=== PATIENT | female | born 1990 | race Caucasian/White ===

== ENCOUNTER 2020-11-13 14:54 | Emergency (ER) | payer OTHER, SELFPAY ==
[2020-11-13 15:01] VITALS: BP 120/67; PULSE 88; RESP 18; TEMP 36.6; O2SAT 100
--- NOTE | 2020-11-13 15:04 | ED.SKABFB ---
HPI - Skin/Abscess/Foreign Bdy General Chief complaint: Skin/Abscess/Foreign Body Stated complaint: Insect Bite Time Seen by Provider: 11/13/20 15:04 Source: patient and RN notes reviewed Mode of arrival: ambulatory Limitations: no limitations History of Present Illness HPI narrative: 30-year-old female presents to the [facility] with complaints of an insect bite to the right posterior upper calf and medial right upper thigh. Patient states that she has a history of MRSA No treatment prior to arrival Related Data Home Medications Medication Instructions Recorded Confirmed aripiprazole 1 mg PO DAILY 11/13/20 11/13/20 bupropion HCl 1 mg PO BID 11/13/20 11/13/20 buspirone 1 mg PO BID 11/13/20 11/13/20 hydroxyzine pamoate 1 mg PO BID 11/13/20 11/13/20 lamotrigine 1 mg PO DAILY 11/13/20 11/13/20 naltrexone 1 mg PO DAILY 11/13/20 11/13/20 topiramate 1 mg PO DAILY 11/13/20 11/13/20 Allergies Allergy/AdvReac Type Severity Reaction Status Date / Time bee venom protein (honey bee) Allergy Intermediate TISSUE Verified 11/13/20 15:09 SWELLING latex Allergy Intermediate ITCHING,VINNY Verified 11/13/20 15:09 H morphine Allergy Intermediate ITCHING Verified 11/13/20 15:09 Review of Systems Review of Systems: All systems reviewed & are unremarkable except as noted in HPI and below Constitutional: Constitutional: Reports no additional constitutional complaints, Denies chills and Denies fever(s) Eyes: Eyes: Reports no additional eye complaints ENT: Reports system reviewed and no additional complaints, except as documented Cardiovascular: Cardiovascular: Reports no additional cardiovascular complaints and Denies chest pain Respiratory: Respiratory: Reports no additional respiratory complaints, Denies cough and Denies dyspnea Gastrointestinal: Gastrointestinal: Reports no additional gastrointestinal complaints Musculoskeletal: Musculoskeletal: Reports no additional musculoskeletal complaints, Denies back pain, Denies arthralgias, Denies joint swelling and Denies muscle cramps Integumentary/Breasts: Skin/Breast: Reports as per HPI and Reports erythema (Area on right thigh and right marcus area) Neurologic: Reports system reviewed and no additional complaints, except as documented Psychiatric: Psychiatric: Reports no additional psychiatric complaints Allergic/Immunologic: Allergic/Immunologic: Reports no additional allergic/immunologic complaints, Denies lip swelling, Denies throat swelling, Denies tongue swelling and Denies wheezing PMFSH Family History Family History (Updated 10/28/18 @ 10:54 by DOCTOR UNKNOWN) Other Family history of attention deficit hyperactivity disorder (ADHD) Hypertension Social History Social History Smoking status: Current every day smoker Alcohol intake: current Gender identity (if verbalized by the patient): Female Comments At the time of my signature, I reviewed and agree with the nursing past medical, surgical, social, and family history. There is no relevant family history pertinent to the patient complaint. Exam Const: General: no acute distress, alert and ill appearing acutely (Mildly) Nutritional Appearance: well nourished Orientation/consciousness: patient oriented x3 Limitations: no limitations HENMT: Head: normal to inspection Ears: external ears normal Eyes: Pupils: Equal, round and reactive pupils present Neck: Neck: normal visual inspection, no lymphadenopathy and no meningeal signs Chest: Chest palpation & inspection: normal inspection of the chest Resp: Effort & Inspection: normal respiratory effort and no use of accessory muscles Auscultation: clear to auscultation bilaterally, no crackles, no rales, no rhonchi and no wheezes Cardio: Rate: regular rate Rhythm: regular rhythm GI: GI Palp: Yes Soft to palpation and No Tenderness to palpation present (GI) : General: Yes no CVA tenderness Back/Spine/Pelvis: Back: no CVA tenderness Skin: Vinny
== END 2020-11-13 15:20 | disposition home or self-care (01) ==
PROVIDERS: Emergency Provider Nurse Practitioner; PCP Family Medicine
DX: L03.115 Cellulitis of right lower limb (principal); F17.200 Nicotine dependence, unspecified, uncomplicated; Z86.14 Personal history of Methicillin resistant Staphylococcus aureus infection; F32.9 Major depressive disorder, single episode, unspecified
CPT/HCPCS: 99213; G0463

== ENCOUNTER 2021-05-17 17:38 | Emergency (ER) | payer OTHER, SELFPAY ==
[2021-05-17 17:54] VITALS: BP 121/64; PULSE 86; RESP 16; TEMP 37.3; O2SAT 98
--- NOTE | 2021-05-17 18:28 | ED.URI ---
HPI - URI/Sore Throat General Chief Complaint: Upper Respiratory Infection Stated Complaint: sore throat Time Seen by Provider: 05/17/21 18:30 Source: patient, RN notes reviewed and old records reviewed Mode of arrival: ambulatory Limitations: no limitations History of Present Illness HPI Narrative: 31-year-old female who presents to [facility] with complaints of sore throat, sinus congestion and drainage, some low grade temps.Patient states that her throat is burning.Patient denies any cough or any shortness of breath with lungs clear with no tachypnea or any respiratory difficulty, SAO2 98% on room air. Patient reports that she has taken some Tylenol for her symptoms, is daily smoker. Related Data Home Medications Medication Instructions Recorded Confirmed aripiprazole 1 mg PO DAILY 11/13/20 11/13/20 bupropion HCl 1 mg PO BID 11/13/20 11/13/20 buspirone 1 mg PO BID 11/13/20 11/13/20 hydroxyzine pamoate 1 mg PO BID 11/13/20 11/13/20 lamotrigine 1 mg PO DAILY 11/13/20 11/13/20 naltrexone 1 mg PO DAILY 11/13/20 11/13/20 topiramate 1 mg PO DAILY 11/13/20 11/13/20 clonidine HCl 05/17/21 lamotrigine 05/17/21 naltrexone mg 05/17/21 Allergies Allergy/AdvReac Type Severity Reaction Status Date / Time bee venom protein (honey bee) Allergy Intermediate TISSUE Verified 11/13/20 15:09 SWELLING latex Allergy Intermediate ITCHING,WADE Verified 11/13/20 15:09 H morphine Allergy Intermediate ITCHING Verified 11/13/20 15:09 Review of Systems Review of Systems: CONSTITUTIONAL: Low grade fever, no chills, or sweats. EYES: Denies visual changes, redness, or discharge. ENT: Positive rhinorrhea, congestion, sore throat, no otalgia. CARDIOVASCULAR: Denies chest pain, palpitations, or edema. RESPIRATORY: Denes cough or dyspnea. GASTROINTESTINAL: Denies abdominal pain, nausea, vomiting, or diarrhea. GENITOURINARY: Denies dysuria or hematuria. SKIN: Denies rash or itching. MUSCULOSKELETAL: Denies back pain, joint pain, or myalgia. NEUROLOGIC: Denies headache, numbness, or weakness. PSYCHIATRIC: Positive for history of anxiety or depression. All systems reviewed & are unremarkable except as noted in HPI and below PMFSH Past Medical History Medical History (Updated 05/19/21 @ 13:26 by Krupa Lucia NP) Anemia Anxiety and depression Bipolar disorder Endometriosis GERD (gastroesophageal reflux disease) Kidney stones Perforated ulcer required surgery Surgical History Surgical History (Updated 05/19/21 @ 13:25 by Krupa Lucia NP) H/O gastric sleeve History of carpal tunnel repair Hx of cholecystectomy Family History Family History Other Family history of attention deficit hyperactivity disorder (ADHD) Hypertension Social History Social History Smoking status: Current every day smoker Alcohol intake: current Gender identity (if verbalized by the patient): Female Comments At time of signature, agree with nursing past medical, surgical, social and family history. There is no relevant family history pertinent to the presenting complaint Exam Narrative: GENERAL: Well-appearing, well-nourished, and in no acute distress. HEAD: Normocephalic, atraumatic. EYES: PERRLA and EOMI. ENT: Nares red with clear rhinorrhea no epistaxis. Mucous membranes moist.TM's normal with good light reflex, throat red with no lesions or exudates, tonsils red and swollen reports throat painful. NECK: Supple.No lymphadenopathy CHEST: Clear to auscultation. No respiratory distress. dry cough SAO2 98% on room air no tachypnea. HEART: Regular rate and rhythm. No murmur heard. Normal peripheral pulses. ABDOMEN: Soft, nontender, nondistended, normal active bowel sounds. EXTREMITIES: Normal range of motion. No edema. SKIN: Warm, dry, no rash. NEURO: No focal deficits. Alert and oriented x3. Course Course Level of C
== END 2021-05-17 19:15 | disposition home or self-care (01) ==
PROVIDERS: Emergency Provider Registered Nurse
DX: J06.9 Acute upper respiratory infection, unspecified (principal); J02.9 Acute pharyngitis, unspecified; N80.9 Endometriosis, unspecified; K21.9 Gastro-esophageal reflux disease without esophagitis; Z98.84 Bariatric surgery status; F17.200 Nicotine dependence, unspecified, uncomplicated; F41.9 Anxiety disorder, unspecified; F31.9 Bipolar disorder, unspecified
CPT/HCPCS: 87081; 87880; 99213; G0463

== ENCOUNTER 2022-02-13 09:05 | Emergency (ER) | payer OTHER, SELFPAY ==
[2022-02-13 09:19] VITALS: BP 116/75; PULSE 63; RESP 18; TEMP 35.9; O2SAT 100
--- NOTE | 2022-02-13 09:22 | ED.FEMALEGU ---
HPI - Female Genitourinary General Chief complaint: Urogenital-Female Stated complaint: left side pain Time Seen by Provider: 02/13/22 09:41 Source: patient and RN notes reviewed Mode of arrival: ambulatory Limitations: no limitations History of Present Illness HPI Narrative: 31-year-old female presents with concern for left flank pain. She reports pain started 2 days ago with a dull pain, increased slightly and has now decreased. She denies dysuria, frequency, urgency, hematuria. She denies fever, bodies, chills, sweats, nausea, vomiting, abdominal pain. She reports the left flank pain does radiate around the side. She denies any injury or trauma. She reports the pain is not positional, however it feels tender when she touches it. She reports history of kidney infection when which she had very similar symptoms. MD elicited complaint: flank pain Related Data Home Medications Medication Instructions Recorded Confirmed aripiprazole 10 mg tablet 1 mg PO DAILY 11/13/20 11/13/20 bupropion HCl 200 mg tablet,12 hr 1 mg PO BID 11/13/20 11/13/20 sustained-release buspirone 7.5 mg tablet 1 mg PO BID 11/13/20 11/13/20 hydroxyzine pamoate 25 mg capsule 1 mg PO BID 11/13/20 11/13/20 lamotrigine 100 mg tablet 1 mg PO DAILY 11/13/20 11/13/20 naltrexone 50 mg tablet 1 mg PO DAILY 11/13/20 11/13/20 topiramate 25 mg tablet 1 mg PO DAILY 11/13/20 11/13/20 clonidine HCl 0.1 mg tablet 05/17/21 lamotrigine 100 mg tablet 05/17/21 naltrexone 50 mg tablet mg 05/17/21 ferrous sulfate 325 mg (65 mg mg 02/13/22 iron) tablet (FeroSul) ziprasidone HCl 60 mg capsule mg PO 02/13/22 02/13/22 Allergies Allergy/AdvReac Type Severity Reaction Status Date / Time bee venom protein (honey bee) Allergy Intermediate TISSUE Verified 02/13/22 09:28 SWELLING latex Allergy Intermediate ITCHING,WADE Verified 02/13/22 09:28 H morphine Allergy Intermediate ITCHING Verified 02/13/22 09:28 Review of Systems Review of Systems: CONSTITUTIONAL: Denies malaise, chills, sweats, or fever. CARDIOVASCULAR: Denies chest pain, palpitations, or edema. RESPIRATORY: Denies cough or dyspnea. GASTROINTESTINAL: Denies abdominal pain, nausea, vomiting, diarrhea GENITOURINARY: Denies dysuria, frequency, urgency, suprapubic pressure, hematuria. Reports left-sided flank pain SKIN: Denies rash or itching. MUSCULOSKELETAL: Denies back pain or myalgia. All systems reviewed & are unremarkable except as noted in HPI and below PMFSH Past Medical History Medical History (Updated 02/13/22 @ 09:49 by Geri Griffith NP) Anemia Anxiety and depression Bipolar disorder Endometriosis GERD (gastroesophageal reflux disease) Kidney stones Perforated ulcer required surgery Surgical History Surgical History (Updated 05/19/21 @ 13:25 by Krupa Lucia NP) H/O gastric sleeve History of carpal tunnel repair Hx of cholecystectomy Family History Family History Other Family history of attention deficit hyperactivity disorder (ADHD) Hypertension Social History Social History Smoking status: Current every day smoker Alcohol intake: current Gender identity (if verbalized by the patient): Female Comments At time of signature, agree with nursing past medical, surgical, social and family history. There is no relevant family history pertinent to the presenting complaint Exam Narrative: GENERAL: Well-appearing, well-nourished, and in no acute distress. HEAD: Normocephalic. EYES: PERRLA, conjunctivae clear. NECK: Supple. No lymphadenopathy CHEST: Clear to auscultation. No respiratory distress. HEART: Regular rate and rhythm. ABDOMEN: Soft, nontender upon palpation, nondistended, normal active bowel sounds, no palpable or pulsatile masses, no guarding. No CVA tenderness SKIN: Warm, dry, no rash. NEURO: Alert and oriented x3. PSYCH: Normal m
== END 2022-02-13 09:53 | disposition home or self-care (01) ==
PROVIDERS: Emergency Provider Nurse Practitioner
DX: R10.9 Unspecified abdominal pain (principal); F17.200 Nicotine dependence, unspecified, uncomplicated; N80.9 Endometriosis, unspecified; K21.9 Gastro-esophageal reflux disease without esophagitis; F41.9 Anxiety disorder, unspecified; F31.9 Bipolar disorder, unspecified; Z98.84 Bariatric surgery status
CPT/HCPCS: 81003; 87086; 99213; G0463

== ENCOUNTER 2022-02-19 15:14 | Emergency (ER) | payer OTHER, SELFPAY ==
[2022-02-19 15:27] VITALS: BP 103/63; PULSE 82; RESP 20; TEMP 37; O2SAT 100
--- NOTE | 2022-02-19 16:24 | ED.FEMALEGU ---
HPI - Female Genitourinary General Chief complaint: Urogenital-Female Stated complaint: dysuria Time Seen by Provider: 02/19/22 16:24 Source: patient, family, RN notes reviewed and old records reviewed Mode of arrival: ambulatory Limitations: no limitations History of Present Illness HPI Narrative: 31-year-old female who presents to express care with complaints of burning with urination continues. She reports that her back pain is gone but continues to have front lower abdominal discomfort and the burning with her urination. Patient reports that she has 3 doses of Augmentin left that was previously ordered. patient reports that she usually needs Bactrim to get rid of her UTI's. Patient is afebrile, denies any vagianl discharge or itching, denies any McBurney point tenderness on examination or any CVA tenderness. MD elicited complaint: UTI Onset (ago): day(s) (7) Location of symptoms: suprapubic Severity scale (1-10): 6 Quality of pain: dull Related Data Home Medications Medication Instructions Recorded Confirmed aripiprazole 10 mg tablet 1 mg PO DAILY 11/13/20 02/19/22 bupropion HCl 200 mg tablet,12 hr 1 mg PO BID 11/13/20 02/19/22 sustained-release buspirone 7.5 mg tablet 1 mg PO BID 11/13/20 02/19/22 hydroxyzine pamoate 25 mg capsule 25 mg PO BID 11/13/20 02/19/22 clonidine HCl 0.1 mg tablet 0.1 mg PO DAILY 05/17/21 02/19/22 naltrexone 50 mg tablet 50 mg PO DAILY 05/17/21 02/19/22 ferrous sulfate 325 mg (65 mg 325 mg PO DAILY 02/13/22 02/19/22 iron) tablet (FeroSul) topiramate 100 mg tablet 100 mg PO DIRECTED 02/19/22 02/19/22 Allergies Allergy/AdvReac Type Severity Reaction Status Date / Time bee venom protein (honey bee) Allergy Intermediate TISSUE Verified 02/19/22 15:17 SWELLING latex Allergy Intermediate ITCHING,WADE Verified 02/19/22 15:17 H morphine Allergy Intermediate ITCHING Verified 02/19/22 15:17 Review of Systems Review of Systems: CONSTITUTIONAL: Denies fever, chills, or sweats. CARDIOVASCULAR: Denies chest pain, palpitations, or edema. RESPIRATORY: Denies cough or dyspnea. GASTROINTESTINAL: suprapubic abdominal pain,no nausea, vomiting, or diarrhea. GENITOURINARY: Reports dysuria, frequency, urgency. Denies flank pain or hematuria. SKIN: Denies rash or itching. MUSCULOSKELETAL: Denies back pain or myalgia. Denies CVA tenderness NEUROLOGIC: Denies headache All systems reviewed & are unremarkable except as noted in HPI and below PMFSH Past Medical History Medical History Anemia Anxiety and depression Bipolar disorder Endometriosis GERD (gastroesophageal reflux disease) Kidney stones Perforated ulcer required surgery Surgical History Surgical History H/O gastric sleeve History of carpal tunnel repair Hx of cholecystectomy Family History Family History Other Family history of attention deficit hyperactivity disorder (ADHD) Hypertension Social History Social History Smoking status: Current every day smoker Alcohol intake: current Gender identity (if verbalized by the patient): Female Comments At time of signature, agree with nursing past medical, surgical, social and family history. There is no relevant family history pertinent to the presenting complaint Exam Narrative: GENERAL: Well-appearing, well-nourished, and in no acute distress. HEAD: Normocephalic, atraumatic. NECK: Supple.no lymphadenopathy CHEST: Clear to auscultation. No respiratory distress.SAO2 100% on room air HEART: Regular rate and rhythm. No murmur heard. Normal peripheral pulses. ABDOMEN: Soft, suprapubic tender, nondistended, normal active bowel sounds. No CVA tenderness EXTREMITIES: Normal range of motion. No edema. SKIN: Warm, dry, no rash. NEURO: No focal deficit
== END 2022-02-19 16:49 | disposition home or self-care (01) ==
PROVIDERS: Emergency Provider Registered Nurse; PCP Physician Assistant
DX: R30.0 Dysuria (principal); R10.30 Lower abdominal pain, unspecified; D64.9 Anemia, unspecified; F41.9 Anxiety disorder, unspecified; F32.A Depression, unspecified; N80.9 Endometriosis, unspecified; K21.9 Gastro-esophageal reflux disease without esophagitis; Z98.84 Bariatric surgery status; F17.200 Nicotine dependence, unspecified, uncomplicated
CPT/HCPCS: 81003; 87086; 99213; G0463

== ENCOUNTER 2024-07-28 15:34 | Emergency (ER) | payer OTHER, SELFPAY ==
--- NOTE | ~2024-07-28 | US_ITS ---
EXAMINATION: US OB <= 14 weeks fetus DATE: 07/28/2024 19:09 CDT INDICATION: Remote history of spotting and cramping COMPARISON: 02/11/2024 TECHNIQUE: Real-time transabdominal obstetric ultrasound. FINDINGS: 2 para 1 Estimated date of delivery by last menstrual period is 03/17/2025 The uterus measures 9.4 x 6.3 x 7.7 cm. A gestational sac is identified within the uterus. A pole is identified, with a crown-rump length that measures 1.3 cm, corresponding to an approx imate gestational age of 7 weeks and 4 days. cardiac activity is identified at a rate of 151 bpm. The right ovary measures 3.6 x 2.5 x 2.7 cm. The left ovary measures 2.6 x 1.9 x 2.0cm. Estimated date of delivery by ultrasound is 03/12/2025 IMPRESSION: Single intrauterine gestation with an approximate gestational age of 7 weeks and 4 days, with c ardiac activity identified. Reviewed, dictated and finalized at location A. IMPRESSION: Single intrauterine gestation with an approximate gestational age of 7 weeks an d 4 days, with cardiac activity identified.
[2024-07-28 15:45] VITALS: BP 148/63; PULSE 98; RESP 16; TEMP 36.6; O2SAT 100
--- NOTE | 2024-07-28 18:21 | ED_ITS ---
HPI - General Chief complaint: Vaginal Bleeding <Michelle Mae PA-C - Last Filed: 07/28/24 19:12> Stated complaint: spotting, ? <Michelle Mae PA-C - Last Filed: 07/28/24 19:12> Time Seen by Provider: 07/28/24 18:22 <Michelle Mae PA-C - Last Filed: 07/28/24 19:12> Focused HPI: patient is a 34-year-old female who presents the ED with report of vaginal spotting. Patient reports she is currently around 6 weeks gestation. Her last normal menstrual cycle was late May, early June. . She states she was supposed to have her first OBGYN appointment for confirmation today with Manny Edmond PA-C but states the appointment was cancelled. She was then told to come here for further evaluation as she has been having intermittent vaginal spotting over the past 3 weeks. States at times it is brown discharge, sometimes very light pink. Reports intermittent lower abd cramping. Denies urinary complaints, fevers. GENERAL: Well-appearing, well-nourished, and in no acute distress. HEAD: Normocephalic, atraumatic. CHEST: Clear to auscultation. ?No respiratory distress. HEART: Regular rate and rhythm.? NEURO: ?Alert and oriented x3. Patient screened in triage and initial orders placed.? ?Additional care and disposition to be based upon?diagnostic testing and treatment. <Michelle Mae PA-C - Last Filed: 07/28/24 19:12> Source: patient <Michelle Mae PA-C - Last Filed: 07/28/24 19:12> Mode of arrival: ambulatory <Michelle Mae PA-C - Last Filed: 07/28/24 19:12> Limitations: no limitations <JENNIFER Haney Last Filed: 07/28/24 19:12> History of Present Illness HPI Narrative: Patient 34-year-old female presents emergency department with chief complaint of vaginal spotting. The patient reports approximately 6 weeks reports he was supposed to see her OBGYN today but they canceled patient reports that she had some spotting reports she has not had a confirmation ultrasound so far <El Saunders MD - Last Filed: 07/29/24 00:20> Related Data Home medications: Home Medications ?Medication ?Instructions ?Recorded ?Confirmed ?Last Taken ?Type aripiprazole 10 mg tablet 1 mg PO DAILY 11/13/20 02/19/22 Unknown History bupropion HCl 200 mg tablet,12 hr 1 mg PO BID 11/13/20 02/19/22 Unknown History sustained-release buspirone 7.5 mg tablet 1 mg PO BID 11/13/20 02/19/22 Unknown History hydroxyzine pamoate 25 mg capsule 25 mg PO BID 11/13/20 02/19/22 Unknown History clonidine HCl 0.1 mg tablet 0.1 mg PO DAILY 05/17/21 02/19/22 Unknown History naltrexone 50 mg tablet 50 mg PO DAILY 05/17/21 02/19/22 Unknown History ferrous sulfate 325 mg (65 mg 325 mg PO DAILY 02/13/22 02/19/22 Unknown History iron) tablet (FeroSul) topiramate 100 mg tablet 100 mg PO DIRECTED 02/19/22 02/19/22 Unknown History <Michelle Mae PA-C - Last Filed: 07/28/24 19:12> Allergies/Adverse reactions: Allergies Allergy/AdvReac Type Severity Reaction Status Date / Time bee venom protein (honey bee) Allergy Intermediate TISSUE Verified 07/28/24 23:25 SWELLING latex Allergy Intermediate ITCHING,WADE Verified 07/28/24 23:25 H morphine Allergy Intermediate ITCHING Verified 07/28/24 23:25 <Michelle Mae PA-C - Last Filed: 07/28/24 19:12> Review of Systems 2 Review of Systems: A 10 system review of systems was completed on the patient and is negative except for what is stated in the HPI. Nursing and ancillary documentation was reviewed. <El Saunders MD - Last Filed: 07/29/24 00:20> PMFSH Past Medical History Medical History: Medical History Perforated ulcer required surgery Anxiety and depression Bipolar disorder Anemia Kidney stones Endometriosis GERD (gastroesophageal reflux disease) <Michelle Mae PA-C - Last Filed: 07/28/24 19:12> Surgical History Surgical History: Surgical History Hx of cholecystectomy History of carpal tunnel repair H/O gastric sleeve <Michelle Mae PA-C - Last Filed: 07/28/24 19:12> Family History Family History: Family History Other Family history of attention deficit hyperactivity disorder (ADHD) Hypertension <JENNIFER Haney Last Filed: 07/28/24 19:12> Social History Social History: Social History Smoking status: Current every day smoker Alcohol intake: current Gender identity (if verbalized by the patient): Female <Michelle Mae PA-C - Last Filed: 07/28/24 19:12> Exam 2 Narrative: GENERAL: Well-appearing, well-nourished, and in no acute distress. HEAD: Normocephalic, atraumatic. EYES: PERRLA and EOMI. ENT: Nares clear, no rhinorrhea or epistaxis. Mucous membranes moist. NECK: Supple. CHEST: Clear to auscultation. No respiratory distress. HEART: Regular rate and rhythm. No murmur heard. Normal peripheral pulses. ABDOMEN: Soft, nontender, nondistended, normal active bowel sounds. EXTREMITIES: Normal range of motion. No edema. SKIN: Warm, dry, no rash. NEURO: No focal deficits. Alert and oriented x3. PSYCH: Normal mood and affect. <El Saunders MD - Last Filed: 07/29/24 00:20> Course Vital Signs Vital signs: Vital Signs Temperature 36.6 C 07/28/24 15:45 Pulse Rate 98 07/28/24 15:45 Respiratory Rate 16 07/28/24 15:45 Blood Pressure 148/63 H 07/28/24 15:45 Pulse Oximetry 100 07/28/24 15:45 Temperature 36.9 C 07/28/24 23:26 Pulse Rate 75 07/28/24 23:26 Respiratory Rate 16 07/28/24 23:26 Blood Pressure 130/62 07/28/24 23:26 Pulse Oximetry 98 07/28/24 23:26 <Michelle Mae PA-C - Last Filed: 07/28/24 19:12> Vital Signs Temperature 36.6 C 07/28/24 15:45 Pulse Rate 98 07/28/24 15:45 Respiratory Rate 16 07/28/24 15:45 Blood Pressure 148/63 H 07/28/24 15:45 Pulse Oximetry 100 07/28/24 15:45 Temperature 36.9 C 07/28/24 23:26 Pulse Rate 75 07/28/24 23:26 Respiratory Rate 16 07/28/24 23:26 Blood Pressure 130/62 07/28/24 23:26 Pulse Oximetry 98 07/28/24 23:26 <El Saunders MD - Last Filed: 07/29/24 00:20> MDM - OB/Uterine Contractions MDM Narrative Medical decision making narrative: MSE by RAMSEY in triage. <Michelle Mae PA-C - Last Filed: 07/28/24 19:12> MSE by RAMSEY in triage. Differential diagnosis includes threatened miscarriage, incomplete miscarriage, ectopic Laboratory studies were obtained showed white count 10.2 hemoglobin was 12.9 electrolytes are within normal limits [place] [address] Patient is B+ for blood type Pelvic ultrasound showed Single intrauterine gestation with an approximate gestational age of 7 weeks and 4 days, with cardiac activity identified <El Saunders MD - Last Filed: 07/29/24 00:20> Lab Data Result diagrams: 07/28/24 22:15 07/28/24 22:15 <Michelle Mae PA-C - Last Filed: 07/28/24 19:12> Labs: Lab Results 07/28/24 07/28/24 Range/Units 22:15 23:23 WBC 10.2 H (4.5-10.0) K/mm3 RBC 4.08 L (4.2-5.4) M/mm3 Hgb 12.9 (12.0-15.0) g/dL Hct 37.9 (37.0-47.0) % MCV 92.9 (80-100) fl MCH 31.6 (26-34) pg MCHC 34.0 (32-36) g/dl RDW 13.6 (11.5-14.5) % Plt Count 181 (150-375) k/mm3 MPV 11.4 H (7.4-10.4) fl Immature Gran % (Auto) 0.3 (0-0.5) % Neut % (Auto) 71.6 (45.5-73.1) % Lymph % (Auto) 20.5 (18.3-44.2) % [place] % (Auto) 6.5 (2.6-8.5) % Eos % (Auto) 0.8 (0-4.4) % Baso % (Auto) 0.3 (0.2-1.2) % Lymph # (Auto) 2.08 (0.9-3.2) K/mm3 [place] # (Auto) 0.7 H (0.1-0.6) K/mm3 Eos # (Auto) 0.1 (0-0.3) K/mm3 Baso # (Auto) 0.0 (0.0-0.1) K/mm3 Abs Immat Gran (auto) 0.03 (0.00-0.031) K/mm3 Absolute Neuts (auto) 7.3 H (1.3-6.7) K/mm3 Absolute Nucleated RBC 0.000 (0.0-0.012) K/mm3 Nucleated RBC % 0.0 (0.0-0.2) % PT 13.8 (11.1-14.7) Seconds INR 1.0 APTT 26.6 (22.3-36.8) Seconds Sodium 137 (137-145) mmol/L Potassium 4.1 (3.4-5.0) mmol/L Chloride 105 (98-107) mmol/L Carbon Dioxide 24 (22-30) mmol/L Anion Gap 8 (4-12) mmol/L BUN 11 (7-17) mg/dL Creatinine 0.68 L (0.7-1.0) mg/dL Estim Creat Clear Calc 88 ml/min Estimated GFR > 60 (59 - ) Glucose 90 (65-110) mg/dL Calcium 9.1 (8.4-10.2) mg/dL Total Bilirubin 0.3 (0.2-1.3) mg/dL AST 25 (14-36) U/L ALT 31 (6-35) U/L Alkaline Phosphatase 81 (38-126) U/L Total Protein 7.0 (6.3-8.2) g/dL Albumin 4.0 (3.5-5.1) g/dL Beta HCG, Quant 12466.00 mIU/ML Urine Color Yellow (Yellow) Urine Appearance Clear (Clear) Urine pH 7.0 (5.0-9.0) Ur Specific [place] 1.012 (1.001-1.035) Urine Protein Negative (Negative) mg/dL Urine Glucose (UA) Negative (Negative) mg/dL Urine Ketones Negative (Negative) mg/dL Ur Blood (Man) Negative (Negative) Urine Nitrate Negative (Negative) Urine Bilirubin Negative (Negative) Urine Urobilinogen 0.2 (<2.0) mg/dL Leukocyte Esterase Rfl Negative (Negative) RIA/UL Blood Type B Positive Antibody Screen Negative Screen TNP Baby's Blood Type Not Reportable Baby's HODAN Not Reportable Doses of RhIg Required 0 <Michelle Mae PA-C - Last Filed: 07/28/24 19:12> Lab Results 07/28/24 07/28/24 Range/Units 22:15 23:23 WBC 10.2 H (4.5-10.0) K/mm3 RBC 4.08 L (4.2-5.4) M/mm3 Hgb 12.9 (12.0-15.0) g/dL Hct 37.9 (37.0-47.0) % MCV 92.9 (80-100) fl MCH 31.6 (26-34) pg MCHC 34.0 (32-36) g/dl RDW 13.6 (11.5-14.5) % Plt Count 181 (150-375) k/mm3 MPV 11.4 H (7.4-10.4) fl Immature Gran % (Auto) 0.3 (0-0.5) % Neut % (Auto) 71.6 (45.5-73.1) % Lymph % (Auto) 20.5 (18.3-44.2) % [place] % (Auto) 6.5 (2.6-8.5) % Eos % (Auto) 0.8 (0-4.4) % Baso % (Auto) 0.3 (0.2-1.2) % Lymph # (Auto) 2.08 (0.9-3.2) K/mm3 [place] # (Auto) 0.7 H (0.1-0.6) K/mm3 Eos # (Auto) 0.1 (0-0.3) K/mm3 Baso # (Auto) 0.0 (0.0-0.1) K/mm3 Abs Immat Gran (auto) 0.03 (0.00-0.031) K/mm3 Absolute Neuts (auto) 7.3 H (1.3-6.7) K/mm3 Absolute Nucleated RBC 0.000 (0.0-0.012) K/mm3 Nucleated RBC % 0.0 (0.0-0.2) % PT 13.8 (11.1-14.7) Seconds INR 1.0 APTT 26.6 (22.3-36.8) Seconds Sodium 137 (137-145) mmol/L Potassium 4.1 (3.4-5.0) mmol/L Chloride 105 (98-107) mmol/L Carbon Dioxide 24 (22-30) mmol/L Anion Gap 8 (4-12) mmol/L BUN 11 (7-17) mg/dL Creatinine 0.68 L (0.7-1.0) mg/dL Estim Creat Clear Calc 88 ml/min Estimated GFR > 60 (59 - ) Glucose 90 (65-110) mg/dL Calcium 9.1 (8.4-10.2) mg/dL Total Bilirubin 0.3 (0.2-1.3) mg/dL AST 25 (14-36) U/L ALT 31 (6-35) U/L Alkaline Phosphatase 81 (38-126) U/L Total Protein 7.0 (6.3-8.2) g/dL Albumin 4.0 (3.5-5.1) g/dL Beta HCG, Quant 68401.00 mIU/ML Urine Color Yellow (Yellow) Urine Appearance Clear (Clear) Urine pH 7.0 (5.0-9.0) Ur Specific [place] 1.012 (1.001-1.035) Urine Protein Negative (Negative) mg/dL Urine Glucose (UA) Negative (Negative) mg/dL Urine Ketones Negative (Negative) mg/dL Ur Blood (Man) Negative (Negative) Urine Nitrate Negative (Negative) Urine Bilirubin Negative (Negative) Urine Urobilinogen 0.2 (<2.0) mg/dL Leukocyte Esterase Rfl Negative (Negative) RIA/UL Blood Type B Positive Antibody Screen Negative Screen TNP Baby's Blood Type Not Reportable Baby's HODAN Not Reportable Doses of RhIg Required 0 <El Saunders MD - Last Filed: 07/29/24 00:20> Discharge Plan Discharge Clinical Impression: Threatened <Michelle Mae PA-C - Last Filed: 07/28/24 19:12> Patient Disposition: Home, Self-Care <Michelle Mae PA-C - Last Filed: 07/28/24 19:12> Condition: Stable <Michelle Mae PA-C - Last Filed: 07/28/24 19:12> Instructions: Antibiotic Form, Threatened Miscarriage (ED) <JENNIFER Haney Last Filed: 07/28/24 19:12> Additional Instructions: Please follow-up with your OBGYN <Michelle Mae PA-C - Last Filed: 07/28/24 19:12> Patient Language: Mongolian <Michelle Mae PA-C - Last Filed: 07/28/24 19:12> Prescriptions: No Action clonidine HCl 0.1 mg tablet 0.1 mg PO DAILY naltrexone 50 mg tablet 50 mg PO DAILY buspirone 7.5 mg tablet 1 mg PO BID hydroxyzine pamoate 25 mg capsule 25 mg PO BID bupropion HCl 200 mg tablet sustained-release 12 hr 1 mg PO BID aripiprazole 10 mg tablet 1 mg PO DAILY ferrous sulfate [FeroSul] 325 mg (65 mg iron) tablet 325 mg PO DAILY amoxicillin-pot clavulanate 875-125 mg tablet 1 tablet PO Q12H 7 Days Qty: 14 0RF topiramate 100 mg tablet 100 mg PO DIRECTED sulfamethoxazole-trimethoprim [Bactrim DS] 800-160 mg tablet 1 tablet PO Q12H Qty: 6 0RF phenazopyridine [Pyridium] 200 mg tablet 200 mg PO TID PRN (Reason: pain) Qty: 6 0RF <Michelle Mae PA-C - Last Filed: 07/28/24 19:12> Follow-up/Referrals: Sharad,BERTIN Burt [Primary Care Provider] - <Michelle Mae PA-C - Last Filed: 07/28/24 19:12> Time of Disposition: 00:18 <Michelle Mae PA-C - Last Filed: 07/28/24 19:12> 00:18 <El Saunders MD - Last Filed: 07/29/24 00:20>
[2024-07-28 18:50] VITALS: BP 134/68; PULSE 76; RESP 18; TEMP 36.7; O2SAT 98
[2024-07-28 22:21] LABS: Basophils Percent Auto 0.3 % (0.2-1.2); Eosinophils Absolute Auto 0.1 K/mm3 (0-0.3); Eosinophils Percent Auto 0.8 % (0-4.4); Hematocrit 37.9 % (37.0-47.0); Hemoglobin 12.9 g/dL (12.0-15.0); Immature Granulocyte Absolute 0.03 K/mm3 (0.00-0.031); Immature Granulocyte Percent A 0.3 % (0-0.5); Lymphocytes Absolute Auto 2.08 K/mm3 (0.9-3.2); Lymphocytes Percent Auto 20.5 % (18.3-44.2); Mean Corpuscular Hemoglobin 31.6 pg (26-34); Mean Corpuscular Volume 92.9 fl (80-100); Mean Platelet Volume 11.4 fl (7.4-10.4); Monocytes Absolute Auto 0.7 K/mm3 (0.1-0.6); Monocytes Percent Auto 6.5 % (2.6-8.5); Neutrophils Absolute Auto 7.3 K/mm3 (1.3-6.7); Neutrophils Percent Auto 71.6 % (45.5-73.1); Platelet Count Result 181 k/mm3 (150-375); Red Blood Count 4.08 M/mm3 (4.2-5.4); Red Cell Distribution Width 13.6 % (11.5-14.5); White Blood Count 10.2 K/mm3 (4.5-10.0)
[2024-07-28 22:40] LABS: Alanine Aminotransferase 31 U/L (6-35); Alkaline Phosphatase 81 U/L (38-126); Anion Gap 8 mmol/L (4-12); Aspartate Amino Transferase 25 U/L (14-36); Bilirubin,Total 0.3 mg/dL (0.2-1.3); Blood Urea Nitrogen 11 mg/dL (7-17); Calcium 9.1 mg/dL (8.4-10.2); Carbon Dioxide 24 mmol/L (22-30); Chloride 105 mmol/L (98-107); Estimated CRCL calculation 88 ml/min; Estimated Glomerular Filt Rate > 60; Glucose 90 mg/dL (65-110); Potassium 4.1 mmol/L (3.4-5.0); Sodium 137 mmol/L (137-145)
[2024-07-28 22:47] LABS: Partial Thromboplastin Time 26.6 Seconds (22.3-36.8); Prothrombin Time 13.8 Seconds (11.1-14.7)
[2024-07-28 23:26] VITALS: BP 130/62; PULSE 75; RESP 16; TEMP 36.9; O2SAT 98
[2024-07-28 23:29] LABS: Add Urine Microscopic? NO; Appearance Urine Clear (Clear); Bilirubin Urine Negative (Negative); Blood Urine Negative (Negative); Color Urine Yellow (Yellow); Glucose Urine UA Negative (Negative); Ketones Urine Negative (Negative); Leukocyte Esterase Ur Negative LEU/UL (Negative); Nitrate Urine Negative (Negative); Protein Urine Negative (Negative); Specific Grav Ur 1.012 (1.001-1.035); Urobilinogen Urine 0.2 mg/dL (<2.0)
== END 2024-07-29 00:26 | disposition home or self-care (01) ==
PROVIDERS: Physician Assistant; Emergency Provider Emergency Medicine; PCP Physician Assistant
DX: O20.0 Threatened abortion (principal); Z3A.01 Less than 8 weeks gestation of pregnancy
CPT/HCPCS: 36415; 76801; 80053; 81003; 84702; 85025; 85461; 85610; 85730; 86850; 86900; 86901; 99284

== ENCOUNTER 2024-08-04 15:08 | Emergency (ER) | payer OTHER, SELFPAY ==
--- NOTE | ~2024-08-04 | US_ITS ---
FIRST TRIMESTER ULTRASOUND 08/04/2024 20:00 CDT Ordering provider: Perla Palomares PA-C History: . vaginal bleeding in . Comparison: None. FINDINGS: INTRAUTERINE GESTATIONAL SAC: Present. YOLK SAC: Present. Measures 0.4 cm. POLE: Present. Measures 2.04 cm equivalent to 8 weeks and 4 days. JORGE ALBERTO is March 12, 2025 heart rate is 168 bpm. Subchorionic hematoma is seen. GESTATIONAL AGE BY LMP: GESTATIONAL AGE BY TODAY'S US: UTERUS: The uterus measures 13.2x 6.8x 7.4 cm. in length which is within normal limits. No myometrial masses. FREE FLUID: None. OVARIES: Normal in size with the right measuring 4.4x 3.3x 3 cm. and the left measuring 3.1x 2.3x 2.6 cm. Doppler flow is demonstrated within both ovaries. ADNEXAL MASSES: None. IMPRESSION: Intrauterine of 8 weeks and 4 days with subchorionic hematoma. JORGE ALBERTO is March 12, 2025 Reviewed, dictated and finalized at location A.
[2024-08-04 15:45] VITALS: BP 120/65; PULSE 87; RESP 16; TEMP 36.9; O2SAT 100
--- NOTE | 2024-08-04 18:30 | ED.FEMALEGU ---
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 Patient states she has intermittent brown vaginal spotting for the past 4 weeks. She had an appointment last week at her OB office with Manny Edmond PA-C but unfortunately appointments canceled. While speaking with the staff, she told the staff about her symptoms and was redirected to the emergency department. She was seen in our ED on 07/28/2024 he and had a ultrasound which confirmed a single intrauterine gestation with approximate gestational age of 7 weeks and 4 days with cardiac activity identified. Patient has not followed up with her OBGYN and has not had repeat beta hCG. She presents today because at 1:00 p.m. she began having a significant increase in her vaginal bleeding. States she has passed several palm sized clots and has saturated 1 pad per hour. She is endorsing some lightheadedness and lower abdominal cramping. She denies dysuria, fever, injury or trauma. LMP last week of May. She is requesting to be swabbed for BV. States she has had intermittent foul-smelling discharge. She denies concern for STDs however is requesting swabs for these. Patient is currently on a vitamin containing folic acid. Related Data Home Medications ?Medication ?Instructions ?Recorded ?Confirmed ?Last Taken ?Type aripiprazole 10 mg tablet 1 mg PO DAILY 11/13/20 02/19/22 Unknown History bupropion HCl 200 mg tablet,12 hr 1 mg PO BID 11/13/20 02/19/22 Unknown History sustained-release buspirone 7.5 mg tablet 1 mg PO BID 11/13/20 02/19/22 Unknown History hydroxyzine pamoate 25 mg capsule 25 mg PO BID 11/13/20 02/19/22 Unknown History clonidine HCl 0.1 mg tablet 0.1 mg PO DAILY 05/17/21 02/19/22 Unknown History naltrexone 50 mg tablet 50 mg PO DAILY 05/17/21 02/19/22 Unknown History ferrous sulfate 325 mg (65 mg 325 mg PO DAILY 02/13/22 02/19/22 Unknown History iron) tablet (FeroSul) topiramate 100 mg tablet 100 mg PO DIRECTED 02/19/22 02/19/22 Unknown History Allergies Allergy/AdvReac Type Severity Reaction Status Date / Time bee venom protein (honey bee) Allergy Intermediate TISSUE Verified 08/04/24 15:09 SWELLING latex Allergy Intermediate ITCHING,WADE Verified 08/04/24 15:09 H morphine Allergy Intermediate ITCHING Verified 08/04/24 15:09 Review of Systems Review of Systems: All systems reviewed & are unremarkable except as noted in HPI and below PMFSH Past Medical History Medical History Perforated ulcer required surgery Anxiety and depression Bipolar disorder Anemia Kidney stones Endometriosis GERD (gastroesophageal reflux disease) Surgical History Surgical History Hx of cholecystectomy History of carpal tunnel repair H/O gastric sleeve Family History Family History Other Family history of attention deficit hyperactivity disorder (ADHD) Hypertension Social History Social History Smoking status: Current every day smoker Alcohol intake: current Gender identity (if verbalized by the patient): Female Exam Narrative: GENERAL: Well-appearing, well-nourished, and in no acute distress. HEAD: Normocephalic, atraumatic. EYES: EOMI. ENT: Nares clear, no rhinorrhea or epistaxis. Mucous membranes moist. NECK: Supple. CHEST: Clear to auscultation. No respiratory distress. HEART: Regular rate and rhythm. No murmur heard. Normal peripheral pulses. ABDOMEN: Soft, nontender, nondistended, normal active bowel sounds. No rebound, guarding or rigidity. No CVA tenderness : Chaperoned by DILIA Marcial: Normal external genitalia, mild amount of bright red blood in the vaginal vault with small dime-sized clot which was easily removed, cervical os is closed with no tissue or clots in the office, no CMT, vaginal discharge, adnexal masses or tenderness EXTREMITIES: Normal range of motion. No edema. SKIN: Warm, dry, no rash. NEURO: No focal deficits. Alert and oriented x3 Course Vital Signs Vital signs: Vital Signs Temperature 98.4 F 08/04/24 15:45 Pulse Rate 87 08/04/24 15:45 Respiratory Rate 16 08/04/24 15:45 Blood Pressure 120/65 08/04/24 15:45 Pulse Oximetry 100 08/04/24 15:45 Temperature 98.4 F 08/04/24 15:45 Pulse Rate 90 08/04/24 19:47 Respiratory Rate 16 08/04/24 19:47 Blood Pressure 121/51 L 08/04/24 19:47 Pulse Oximetry 98 08/04/24 19:47 MDM - Female Genitourinary MDM Narrative Medical decision making narrative: 34-year-old female who is , currently 8w4d, presents to the emergency department for vaginal bleeding and . Patient has had intermittent brown tinged discharge for approximately 4 weeks. Had a confirmed IUP in our ED on 07/28/2024 noting a single intrauterine gestation with an approximate gestational age of 7 weeks and 4 days with cardiac activity identified. Presents today because bleeding remarkably increased at 1:00 p.m. with the passage of several palm sized clots. She is endorsing associated lower abdominal cramping and lightheadedness. Upon arrival to the ED triage vitals are stable. Patient is afebrile and nontoxic appearing resting comfortably in exam bed. Abdomen is soft and nontender. CBC shows mild leukocytosis of 12.2 which may be reactive and due to . Hemoglobin stable at 12.6. Chemistries are unremarkable. UA with 3-5 RBCs, no UTI or bacteria. Rh is B-positive, RhoGAM not indicated. Beta hCG today is 88,137, 1 week ago was 57,728. Repeat ultrasound today shows an intrauterine of 8 weeks and 4 days, heart rate is 168 ppm, subchorionic hematoma. Patient and her mother at bedside updated on results. Bleeding is significantly improved while in the emergency department. Vitals remained stable. Patient was given IV fluids and Tylenol with improvement. Feel she is safe to be discharged home with close OBGYN follow-up. Advised repeat beta-hCG in 48 hours and discussed strict ED return precautions. She is agreeable with the plan verbalized understanding. Discharged in stable condition Lab Data 08/04/24 19:02 08/04/24 19:02 Labs: Lab Results 08/04/24 08/04/24 Range/Units 19:02 21:08 WBC 12.2 H (4.5-10.0) K/mm3 RBC 3.96 L (4.2-5.4) M/mm3 Hgb 12.6 (12.0-15.0) g/dL Hct 36.8 L (37.0-47.0) % MCV 92.9 (80-100) fl MCH 31.8 (26-34) pg MCHC 34.2 (32-36) g/dl RDW 13.2 (11.5-14.5) % Plt Count 183 (150-375) k/mm3 MPV 11.8 H (7.4-10.4) fl Immature Gran % (Auto) 0.4 (0-0.5) % Neut % (Auto) 76.5 H (45.5-73.1) % Lymph % (Auto) 17.8 L (18.3-44.2) % [place] % (Auto) 4.8 (2.6-8.5) % Eos % (Auto) 0.3 (0-4.4) % Baso % (Auto) 0.2 (0.2-1.2) % Lymph # (Auto) 2.17 (0.9-3.2) K/mm3 [place] # (Auto) 0.6 (0.1-0.6) K/mm3 Eos # (Auto) 0.0 (0-0.3) K/mm3 Baso # (Auto) 0.0 (0.0-0.1) K/mm3 Abs Immat Gran (auto) 0.05 H (0.00-0.031) K/mm3 Absolute Neuts (auto) 9.3 H (1.3-6.7) K/mm3 Absolute Nucleated RBC 0.000 (0.0-0.012) K/mm3 Nucleated RBC % 0.0 (0.0-0.2) % PT 13.9 (11.1-14.7) Seconds INR 1.0 APTT 28.8 (22.3-36.8) Seconds Sodium 137 (137-145) mmol/L Potassium 3.8 (3.4-5.0) mmol/L Chloride 104 (98-107) mmol/L Carbon Dioxide 24 (22-30) mmol/L Anion Gap 9 (4-12) mmol/L BUN 8 (7-17) mg/dL Creatinine 0.69 L (0.7-1.0) mg/dL Estim Creat Clear Calc 101 ml/min Estimated GFR > 60 (59 - ) Glucose 86 (65-110) mg/dL Calcium 9.3 (8.4-10.2) mg/dL Total Bilirubin 0.4 (0.2-1.3) mg/dL AST 25 (14-36) U/L ALT 26 (6-35) U/L Alkaline Phosphatase 85 (38-126) U/L Total Protein 7.0 (6.3-8.2) g/dL Albumin 4.4 (3.5-5.1) g/dL Beta HCG, Quant 39124.00 mIU/ML Urine Color Yellow (Yellow) Urine Appearance Clear (Clear) Urine pH 7.5 (5.0-9.0) Ur Specific [place] 1.005 (1.001-1.035) Urine Protein Negative (Negative) mg/dL Urine Glucose (UA) Negative (Negative) mg/dL Urine Ketones Negative (Negative) mg/dL Ur Blood (Man) 1+ H (Negative) Urine Nitrate Negative (Negative) Urine Bilirubin Negative (Negative) Urine Urobilinogen 0.2 (<2.0) mg/dL Leukocyte Esterase Rfl Negative (Negative) RIA/UL Urine RBC 3-5 H (0-2) /hpf Urine WBC 0-5 (0-3) /hpf Ur Squamous Epith Cells None seen (Few) /hpf Urine Bacteria None seen /hpf Urine Casts 0-2 C. trachomatis (PCR) Not detected (NOT DETECTE) N. gonorrhoeae (PCR) Not detected (NOT DETECTE) T. vaginalis (PCR) Not detected (NOT DETECTE) Bact Vaginosis Panel Pending Blood Type B Positive Antibody Screen Negative Screen Not Reportable Baby's Blood Type Not Reportable Baby's HODAN Not Reportable Doses of RhIg Required 0 Discharge Plan Discharge Clinical Impression: Vaginal bleeding during Subchorionic hematoma in first trimester Qualifiers: Fetus number: single or unspecified fetus Qualified Code(s): O41.8X10 - Other specified disorders of amniotic fluid and membranes, first trimester, not applicable or unspecified Patient Disposition: Home, Self-Care Condition: Stable Instructions: Antibiotic Form, Threatened Miscarriage (ED), Subchorionic Hemorrhage (ED) Additional Instructions: You were evaluated in the emergency department for vaginal bleeding in . Your ultrasound today shows an intrauterine of 8 weeks and 4 days with subchorionic hematoma, estimated date of delivery is March 12, 2025. Your beta hCG hormone level today was 88,137. Please have this lab checked in 48 hours by her OBGYN to ensure it is increasing appropriately. Please follow-up closely with her OBGYN. Return to the emergency department if your saturating through 1 pad per hour, you develop lightheadedness or loss of consciousness, chest pain or shortness of breath, significant abdominal pain, fever, or other concerning symptoms. You can take Tylenol as directed on the bottle as needed for pain. Refrain from NSAID such as ibuprofen, Motrin, Advil, naproxen or Aleve. Please continue taking your vitamin containing folic acid. Patient Language: Japanese Prescriptions: No Action clonidine HCl 0.1 mg tablet 0.1 mg PO DAILY naltrexone 50 mg tablet 50 mg PO DAILY buspirone 7.5 mg tablet 1 mg PO BID hydroxyzine pamoate 25 mg capsule 25 mg PO BID bupropion HCl 200 mg tablet sustained-release 12 hr 1 mg PO BID aripiprazole 10 mg tablet 1 mg PO DAILY ferrous sulfate [FeroSul] 325 mg (65 mg iron) tablet 325 mg PO DAILY amoxicillin-pot clavulanate 875-125 mg tablet 1 tablet PO Q12H 7 Days Qty: 14 0RF topiramate 100 mg tablet 100 mg PO DIRECTED sulfamethoxazole-trimethoprim [Bactrim DS] 800-160 mg tablet 1 tablet PO Q12H Qty: 6 0RF phenazopyridine [Pyridium] 200 mg tablet 200 mg PO TID PRN (Reason: pain) Qty: 6 0RF Follow-up/Referrals: Sharad,BERTIN Burt [Primary Care Provider] - Mayito,BERTIN Mckenna [Non-Staff] -
[2024-08-04] MEDS: SODIUM CHLORIDE 0.9% IV 1,000 ML 999 ML IV CONT (19:03)
[2024-08-04] MEDS: ACETAMINOPHEN 500 MG TABLET 1000 MG PO (19:03)
[2024-08-04 19:09] LABS: Basophils Percent Auto 0.2 % (0.2-1.2); Eosinophils Percent Auto 0.3 % (0-4.4); Hematocrit 36.8 % (37.0-47.0); Hemoglobin 12.6 g/dL (12.0-15.0); Immature Granulocyte Absolute 0.05 K/mm3 (0.00-0.031); Immature Granulocyte Percent A 0.4 % (0-0.5); Lymphocytes Absolute Auto 2.17 K/mm3 (0.9-3.2); Lymphocytes Percent Auto 17.8 % (18.3-44.2); Mean Corpuscular HGB Conc 34.2 g/dl (32-36); Mean Corpuscular Hemoglobin 31.8 pg (26-34); Mean Corpuscular Volume 92.9 fl (80-100); Mean Platelet Volume 11.8 fl (7.4-10.4); Monocytes Absolute Auto 0.6 K/mm3 (0.1-0.6); Monocytes Percent Auto 4.8 % (2.6-8.5); Neutrophils Absolute Auto 9.3 K/mm3 (1.3-6.7); Neutrophils Percent Auto 76.5 % (45.5-73.1); Platelet Count Result 183 k/mm3 (150-375); Red Blood Count 3.96 M/mm3 (4.2-5.4); Red Cell Distribution Width 13.2 % (11.5-14.5); White Blood Count 12.2 K/mm3 (4.5-10.0)
[2024-08-04 19:19] LABS: Alanine Aminotransferase 26 U/L (6-35); Albumin Level 4.4 g/dL (3.5-5.1); Alkaline Phosphatase 85 U/L (38-126); Anion Gap 9 mmol/L (4-12); Aspartate Amino Transferase 25 U/L (14-36); Bilirubin,Total 0.4 mg/dL (0.2-1.3); Blood Urea Nitrogen 8 mg/dL (7-17); Calcium 9.3 mg/dL (8.4-10.2); Carbon Dioxide 24 mmol/L (22-30); Chloride 104 mmol/L (98-107); Estimated CRCL calculation 101 ml/min; Estimated Glomerular Filt Rate > 60; Glucose 86 mg/dL (65-110); Potassium 3.8 mmol/L (3.4-5.0); Sodium 137 mmol/L (137-145)
[2024-08-04 19:35] LABS: Prothrombin Time 13.9 Seconds (11.1-14.7)
[2024-08-04 19:36] LABS: Partial Thromboplastin Time 28.8 Seconds (22.3-36.8)
[2024-08-04 19:43] LABS: Add Urine Microscopic? YES; Appearance Urine Clear (Clear); Bacteria Urine None Seen /hpf; Bilirubin Urine Negative (Negative); Blood Urine 1+ (Negative); Color Urine Yellow (Yellow); Glucose Urine UA Negative (Negative); Ketones Urine Negative (Negative); Leukocyte Esterase Ur Negative LEU/UL (Negative); Nitrate Urine Negative (Negative); Non Pathogenic Casts 0-2; Protein Urine Negative (Negative); Specific Grav Ur 1.005 (1.001-1.035); Squamous Epithelial Cell Urine None Seen /hpf (Few); Urobilinogen Urine 0.2 mg/dL (<2.0); WBC Urine 0-5 /hpf (0-3); pH Urine 7.5 (5.0-9.0)
[2024-08-04 19:47] VITALS: BP 121/51; PULSE 90; RESP 16; O2SAT 98
--- NOTE | 2024-08-04 19:47 | PC.NURSE ---
BERTIN Plummer at bedside performing pelvic exam.
--- NOTE | 2024-08-04 21:57 | PC.NURSE ---
Lab called d/t chart stating BV lab order hadn't been received. Per Blade in the lab, they have received the aptima test for BV.
[2024-08-04 22:20] LABS: Trichomonas Vag PCR NOT DETECTED (NOT DETECTE)
[2024-08-04 22:45] LABS: Chlamydia trachomatis NOT DETECTED (NOT DETECTE); Neisseria gonorrhoeae PCR NOT DETECTED (NOT DETECTE)
[2024-08-04 23:23] VITALS: PULSE 88; RESP 15; O2SAT 99
[2024-08-06 04:09] LABS: Bacterial Vaginosis NEGATIVE (NEGATIVE)
== END 2024-08-04 23:24 | disposition home or self-care (01) ==
PROVIDERS: Emergency Provider Physician Assistant; PCP Physician Assistant
DX: O46.8X1 Other antepartum hemorrhage, first trimester (principal); O09.521 Supervision of elderly multigravida, first trimester; O99.611 Diseases of the digestive system complicating pregnancy, first trimester; K21.9 Gastro-esophageal reflux disease without esophagitis; O99.891 Other specified diseases and conditions complicating pregnancy; N80.9 Endometriosis, unspecified; O99.341 Other mental disorders complicating pregnancy, first trimester; F41.9 Anxiety disorder, unspecified; F32.A Depression, unspecified; O99.331 Smoking (tobacco) complicating pregnancy, first trimester; F17.200 Nicotine dependence, unspecified, uncomplicated; O99.841 Bariatric surgery status complicating pregnancy, first trimester; Z3A.08 8 weeks gestation of pregnancy; Z87.442 Personal history of urinary calculi; Z90.49 Acquired absence of other specified parts of digestive tract; Z79.899 Other long term (current) drug therapy
CPT/HCPCS: 36415; 76801; 80053; 81001; 81513; 84702; 85025; 85461; 85610; 85730; 86850; 86900; 86901; 87491; 87591; 87661; 96360; 99284; A9270; J7030